=== PATIENT | male | born 1985 | race Caucasian/White ===

== ENCOUNTER 2018-09-03 15:13 | Emergency (ER) | payer BC ==
[2018-09-03] MEDS ORDERED: Tetan/Diph/Pertus SYR(Tdap)* 0.5 ML SYR(BOOSTRIX) use SYR IM ONE (15:26)
--- NOTE | 2018-09-03 15:35 | ED ---
Upper Extremity Pain - HPI Summary HPI Summary: Pt is a 32 y/o male who presents to the ED c/o laceration. He states he was changing tires on a tire press, when it became dislodged and his right pinky got caught in it. Pt has a laceration and pain to the area. Pt is right-handed. Tetanus is not UTD. 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 Pain Location: Finger - Right fifth Aggravating Factor(s): Movement Alleviating Factor(s): Nothing Related History: Dominant Hand Right - Allergies/Home Medications Allergies/Adverse Reactions: Allergies Allergy/AdvReac Type Severity Reaction Status Date / Time No Known Allergies Allergy Verified 09/03/18 15:20 PMH/Surg Hx/FS Hx/Imm Hx Endocrine/Hematology History: Denies: Hx Diabetes, Hx Thyroid Disease Cardiovascular History: Denies: Hx Hypertension Respiratory History: Reports: Hx Asthma - albuterol on occas Denies: Hx Chronic Obstructive Pulmonary Disease (COPD) GI History: Denies: Hx Ulcer Infectious Disease History: No Infectious Disease History: Denies: Hx Hepatitis, Hx Human Immunodeficiency Virus (HIV), Traveled Outside the [place] in Last 30 Days - Family History Known Family History: Negative: Diabetes - Social History Alcohol Use: Rare Hx Substance Use: No Substance Use Type: Reports: None Hx Tobacco Use: No Smoking Status (MU): Never Smoked Tobacco Review of Systems Negative: Fever Positive: Other - Laceration All Other Systems Reviewed And Are Negative: Yes Physical Exam - Summary Physical Exam Summary: Appearance: Well appearing, no pain distress Skin: warm, dry, reflects adequate perfusion, flap laceration to ulnar aspect of proximal phalanx of right fifth finger, bleeding controlled, no exposed bone Head/face: normal Eyes: EOMI, ALIZE ENT: mucous membranes moist Neck: supple, non-tender Respiratory: CTA, breath sounds present Cardiovascular: RRR, pulses symmetrical Abdomen: non-tender, soft Bowel Sounds: present Musculoskeletal: normal, strength/ROM intact Neuro: normal, sensory motor intact, A&Ox3, NV intact Triage Information Reviewed: Yes Vital Signs On Initial Exam: Initial Vitals Temp Pulse Resp BP Pulse Ox 98.0 F 91 22 168/98 100 09/03/18 15:17 09/03/18 15:17 09/03/18 15:17 09/03/18 15:17 09/03/18 15:17 Vital Signs Reviewed: Yes Procedures - Laceration/Wound Repair 1 Location: upper extremity - Right index finger Anesthesia: 1.0% - 5 cc, Lido Length, Depth and Shape: U-shaped flap 1.5 cm total Betadine Prep?: Yes Laceration/Wound Explored: clean Suture Type: Prolene - 2 5-0, Vicryl - 1 dermal 4-0 Layer Closure?: Yes - 2 layer Diagnostics - Vital Signs Vital Signs Temp Pulse Resp BP Pulse Ox 09/03/18 15:17 98.0 F 91 22 168/98 100 - Laboratory Lab Statement: Any lab studies that have been ordered have been reviewed, and results considered in the medical decision making process. - Radiology Finger XR Radiology Interpretation Completed By: Radiologist - NO ACUTE OSSEOUS INJURY. IF SYMPTOMS PERSIST, RECOMMEND REPEAT IMAGING. ED physician reviewed radiology report. Course/Dx - Course Course Of Treatment: X-rays negative. Tetanus was updated. Wound was cleaned extensively and repaired up. Dressed with tube gauze. Follow-up for sutures in 10 days. Digit is neurovascularly intact. - Diagnoses Differential Diagnosis/HQI/PQRI: Positive: Fracture (Open), Fracture (Closed), Laceration, Other - Neurovascular injury Provider Diagnoses: Laceration of right index finger Discharge - Sign-Out/Discharge Documenting (check all that apply): Patient Departure - Discharge - Discharge Plan Condition: Improved Disposition: HOME Prescriptions: Cephalexin CAP* [Keflex CAP*] 500 mg PO TID #21 cap Patient Education Materials: Laceration (ED) Referrals: [facility] [Outside] [facility] [place] [facility] [Outside] No Primary Care Phys,NOPCP [Primary Care Provider] - Additional Instructions: Follow-up in the ER or urgent care center for suture removal in 10 days' time. Keep clean and dry. Return with redness, drainage from the wound, concern for infection, worse or other concerns. Dress with bacitracin ointment twice daily. - Billing Disposition and Condition Condition: IMPROVED Disposition: Home - Attestation Statements Document Initiated by Scribe: Yes Documenting Scribe: Marizol Monahan Provider For Whom Scribe is Documenting (Include Credential): Ty Sky MD Scribe Attestation: I, Marizol Monahan, scribed for Ty Sky MD on 09/03/18 at 1801. Scribe Documentation Reviewed: Yes Provider Attestation: The documentation as recorded by the [email or web address] accurately reflects the service I personally performed and the decisions made by me, Ty Sky MD
[2018-09-03 16:19] VITALS: BP 126/89
== END 2018-09-03 16:17 | disposition home or self-care (01) ==
LOC: ED 15:13
DX: S61.216A Laceration without foreign body of right little finger without damage to nail, initial encounter (principal); W31.89XA Contact with other specified machinery, initial encounter; Y92.9 Unspecified place or not applicable; Z23 Encounter for immunization; J45.909 Unspecified asthma, uncomplicated
CPT/HCPCS: 12001; 73140; 90471; 90715; 99282